=== PATIENT | male | born 1965 | race Two or more races ===

== ENCOUNTER → 2020-07-23 | Outpatient (CLI) | payer BC ==
[2020-07-23 11:23] LABS: Basophils # (A) 0.1 k/uL (0-0.2); Basophils % (A) 1 %; Eosinophils # (A) 0.5 k/uL (0-0.7); Eosinophils % (A) 7 %; HCT 48.4 % (39.0-53.0); HGB 15.9 gm/dL (13.0-17.5); Lymphocytes # (A) 0.9 k/uL (1.0-4.8); Lymphocytes % (A) 12 %; MCH 26.9 pg (25.0-35.0); MCHC 32.9 g/dL (31.0-37.0); MCV 81.9 fL (80.0-100.0); Mean Platelet Volume 8.3; Monocytes # (A) 0.5 k/uL (0-1.0); Monocytes % (A) 7 %; Neutrophils # (A) 5.1 k/uL (1.3-7.7); Neutrophils % (A) 70 %; Platelet Count 241 k/uL (150-450); RBC 5.91 m/uL (4.30-5.90); RDW 13.5 % (11.5-15.5); WBC 7.3 k/uL (3.8-10.6)
[2020-07-23 11:59] LABS: Total Eosinophil Count 511 #EOS/uL (150-300)
[2020-07-23 12:23] LABS: Erythrocyte Sedimentation Rate 7 mm/hr (0-15)
[2020-07-23 17:57] LABS: African American GFR (CKD) 96.4 (60.0-200.0); Albumin 4.5 g/dL (3.80-4.90); Albumin/Globulin Ratio 1.67 (1.60-3.17); Anion Gap 11.3 mmol/L (4.00-12.00); Calcium 10.2 mg/dL (8.7-10.3); Carbon Dioxide 25.7 mmol/L (21.6-31.8); Globulin 2.7 g/dL (1.6-3.3); Non-African American GFR(CKD) 83.2 (60.0-200.0); Potassium 4.5 mmol/L (3.5-5.5); Total Bilirubin 0.8 mg/dL (0.3-1.2); Total Protein 7.2 g/dL (6.2-8.2)
[2020-07-23 18:22] LABS: Cat Epith & Dander IgE <0.10 kU/L; Cladosporian herbarum IgE <0.10 kU/L; Cockroach IgE <0.10 kU/L; Dermato. farinae IgE 0.11 kU/L; Dog Dander IgE <0.10 kU/L
[2020-07-23 18:23] LABS: Aspergillus fumagatus IgE <0.10 kU/L
[2020-07-23 19:05] LABS: Alternaria alternata IgE <0.10 kU/L; Red Top (Bentgrass) IgE <0.10 kU/L
[2020-07-23 19:07] LABS: Ragweed,Common IgE <0.10 kU/L
[2020-07-23 19:41] LABS: Elm IgE <0.10 kU/L; Maple (Box Elder) IgE <0.10 kU/L
[2020-07-23 19:42] LABS: Birch IgE <0.10 kU/L; Oak IgE <0.10 kU/L
== END | disposition home or self-care (01) ==
LOC: LABWHC1 10:37
PROVIDERS: ATTEND Internal Medicine Critical Care Medicine
DX: J45.909 Unspecified asthma, uncomplicated (principal)
CPT/HCPCS: 36415; 80053; 82785; 85008; 85025; 85652; 86003

== ENCOUNTER → 2021-07-06 | Outpatient (CLI) | payer BC ==
[2021-07-06 13:10] LABS: Basophils % (A) 1 %; Eosinophils # (A) 0.1 k/uL (0-0.7); Eosinophils % (A) 2 %; HCT 47.8 % (39.0-53.0); HGB 15.9 gm/dL (13.0-17.5); Lymphocytes # (A) 0.8 k/uL (1.0-4.8); Lymphocytes % (A) 11 %; MCH 27.5 pg (25.0-35.0); MCHC 33.3 g/dL (31.0-37.0); MCV 82.7 fL (80.0-100.0); Mean Platelet Volume 7.8; Monocytes # (A) 0.4 k/uL (0-1.0); Monocytes % (A) 7 %; Neutrophils # (A) 5.3 k/uL (1.3-7.7); Neutrophils % (A) 77 %; Platelet Count 197 k/uL (150-450); RBC 5.78 m/uL (4.30-5.90); RDW 13.7 % (11.5-15.5); WBC 6.8 k/uL (3.8-10.6)
[2021-07-06 13:47] LABS: Total Eosinophil Count 143 #EOS/uL (150-300)
[2021-07-06 14:53] LABS: Erythrocyte Sedimentation Rate 10 mm/hr (0-15)
[2021-07-06 20:16] LABS: African American GFR (CKD) 114.2 (60.0-200.0); Albumin 4.2 g/dL (3.8-4.9); Albumin/Globulin Ratio 1.49 (1.60-3.17); Anion Gap 15.2 mmol/L (10.00-18.00); BUN/Creat Ratio 26.69 Ratio (12.00-20.00); Blood Urea Nitrogen 21.3 mg/dL (9.0-27.0); Calcium 8.9 mg/dL (8.7-10.3); Carbon Dioxide 19.2 mmol/L (20.0-27.5); Globulin 2.8 g/dL (1.6-3.3); Non-African American GFR(CKD) 98.6 (60.0-200.0); Total Bilirubin 0.3 mg/dL (0.30-1.20)
[2021-07-06 22:26] LABS: Aspergillus fumagatus IgE <0.10 kU/L; Ragweed,Common IgE <0.10 kU/L
[2021-07-06 22:41] LABS: Birch IgE <0.10 kU/L; Cat Epith & Dander IgE <0.10 kU/L; Cockroach IgE <0.10 kU/L; Dermato. farinae IgE <0.10 kU/L; Dog Dander IgE <0.10 kU/L; Elm IgE <0.10 kU/L; Maple (Box Elder) IgE <0.10 kU/L; Oak IgE <0.10 kU/L; Red Top (Bentgrass) IgE <0.10 kU/L
== END | disposition home or self-care (01) ==
LOC: LABWHC1 12:33
PROVIDERS: ATTEND Internal Medicine Critical Care Medicine
DX: J45.998 Other asthma (principal)
CPT/HCPCS: 36415; 80053; 82785; 85008; 85025; 85652; 86003

== ENCOUNTER → 2022-10-11 | Outpatient (CLI) | payer BC ==
[2022-10-11 21:55] LABS: Basophils # (A) 0.01 X 10*3/uL (0.00-0.10); Basophils % (A) 0.2 %; Eosinophils # (A) 0 X 10*3/uL (0.04-0.35); Eosinophils % (A) 0 %; HCT 49.2 % (39.6-50.0); HGB 15.6 g/dL (13.0-17.0); Immature Grans, Automated 0.9 %; Lymphocytes # (A) 0.91 X 10*3/uL (0.90-5.00); Lymphocytes % (A) 15.5 %; MCH 26.4 pg (27.0-32.0); MCHC 31.7 g/dL (32.0-37.0); MCV 83.2 fL (80.0-97.0); Mean Platelet Volume 10.6 fL (9.5-12.2); Monocytes # (A) 0.79 X 10*3/uL (0.20-1.00); Monocytes % (A) 13.5 %; NRBC Per 100 WBC 0 /100 WBCS (0.0-0.0); Neutrophils # (A) 4.11 X 10*3/uL (1.80-7.70); Neutrophils % (A) 69.9 %; Platelet Count 254 X 10*3/uL (140-440); RBC 5.91 X 10*6/uL (4.40-5.60); RDW 13.8 % (11.5-14.5); WBC 5.87 X 10*3/uL (4.50-10.00)
[2022-10-11 23:19] LABS: Erythrocyte Sedimentation Rate 14 mm/Hr (0-20)
[2022-10-12 00:23] LABS: African American GFR (CKD) 101.9 (60.0-200.0); Albumin 4.3 g/dL (3.8-4.9); Albumin/Globulin Ratio 1.66 (1.60-3.17); Anion Gap 11.1 mmol/L (10.00-18.00); BUN/Creat Ratio 22.46 Ratio (12.00-20.00); Blood Urea Nitrogen 21.2 mg/dL (9.0-27.0); Calcium 10.1 mg/dL (8.7-10.3); Carbon Dioxide 25.4 mmol/L (20.0-27.5); Globulin 2.6 g/dL (1.6-3.3); Non-African American GFR(CKD) 87.9 (60.0-200.0); Potassium 4.6 mmol/L (3.5-5.5); Total Bilirubin 0.3 mg/dL (0.30-1.20)
[2022-10-12 00:24] LABS: T4, Free (Free Thyroxine) 1.43 ng/dL (0.800-1.800)
[2022-10-12 13:04] LABS: Aldolase 3.3 U/L (1.2-7.6)
[2022-10-12 15:50] LABS: C Reactive Protein 0.9 mg/dL (0.00-0.80)
== END | disposition home or self-care (01) ==
LOC: LABWHC1 13:21
PROVIDERS: ATTEND Internal Medicine Critical Care Medicine
DX: J45.50 Severe persistent asthma, uncomplicated (principal)
CPT/HCPCS: 36415; 80053; 82085; 82164; 82550; 83615; 84439; 84443; 85025; 85652; 86140

== ENCOUNTER → 2024-11-08 | Outpatient (CLI) | payer BC ==
[2024-11-08 15:34] LABS: ALT 41 U/L (10-49); AST 33 U/L (14-35); Albumin 4.3 g/dL (3.8-4.9); Albumin/Globulin Ratio 1.87 Ratio (1.60-3.17); Alkaline Phosphatase 158 U/L (41-126); BUN/Creat Ratio 24.73 Ratio (12.00-20.00); Blood Urea Nitrogen 27.2 mg/dL (9.0-27.0); Calcium 9.6 mg/dL (8.7-10.3); Carbon Dioxide 24.9 mmol/L (21.6-31.8); Chloride 106 mmol/L (96-109); Chol/HDL Ratio 2.16 Ratio; Globulin 2.3 g/dL (1.6-3.3); Glucose 87 mg/dL (70-110); LDL Cholesterol,Calculated 49.9 mg/dL (0.0-131.0); Potassium 4.8 mmol/L (3.5-5.5); Sodium 141 mmol/L (135-145); T4, Free (Free Thyroxine) 1.39 ng/dL (0.80-1.80); Total Bilirubin 0.6 mg/dL (0.3-1.2); Total Protein 6.6 g/dL (6.2-8.2); VLDL Calculation 16.84 mg/dL (5.00-40.00)
[2024-11-08 18:58] LABS: Basophils % (A) 1.4 %; Eosinophils # (A) 0.66 X 10*3/uL (0.04-0.35); Eosinophils % (A) 9.1 %; HCT 54.7 % (39.6-50.0); HGB 17.5 g/dL (13.0-17.0); Lymphocytes # (A) 1.05 X 10*3/uL (0.90-5.00); Lymphocytes % (A) 14.5 %; MCH 26.9 pg (27.0-32.0); MCV 84.2 FL (80.0-97.0); Mean Platelet Volume 10.8 FL (9.5-12.2); Monocytes # (A) 0.87 X 10*3/uL (0.20-1.00); NRBC Per 100 WBC 0 X 10*3/uL (0.00-0.01); Neutrophils % (A) 62.3 %; Platelet Count 206 X 10*3/uL (140-440); RDW 14.1 % (11.5-14.5); WBC 7.23 X 10*3/uL (4.50-10.00)
[2024-11-08 19:10] LABS: Erythrocyte Sedimentation Rate 12 mm/Hr (0-20)
== END | disposition home or self-care (01) ==
LOC: LABWHC1 12:28
PROVIDERS: ATTEND Internal Medicine Critical Care Medicine
DX: Z00.00 Encounter for general adult medical examination without abnormal findings (principal); I21.3 ST elevation (STEMI) myocardial infarction of unspecified site; I10 Essential (primary) hypertension; E78.5 Hyperlipidemia, unspecified; J45.50 Severe persistent asthma, uncomplicated
CPT/HCPCS: 36415; 80053; 80061; 82164; 82652; 84439; 84443; 85025; 85652

== ENCOUNTER → 2024-11-08 | Outpatient (CLI) | payer BC ==
--- NOTE | 2024-11-14 13:48 | P.PCN ---
Date of Procedure: 11/11/24 Operative Findings: Home sleep study report Date of service is 11/09/2024 History 59-year-old male patient with history of snoring and chronic fatigue and limited sleepiness. Suspected obstructive sleep apnea. No recent weight gain. Known to have cardiomyopathy, previous AR post AICD placement. Also noted to have chronic bronchial asthma. The patient carries an [place] score of 7. Physical findings Body mass index is 25.2. Technical description The [employer] system was used to complete his home sleep study. The total sleep recording duration was 7 hours and 27 minutes. The study started at 12:33 AM and ended at 8 AM. There was a total of 7 hours and 15 minutes of flow monitoring and 7 hours and 17 minutes of oxygen saturation monitoring. Results The respiratory analysis showed a total of 11 obstructive apneas and 53 obstructive hypopneas. The resulting AHI was 8.8 consistent with mild obstructive sleep apnea. AHI in the supine body position was 11.2 Oxygenation analysis The patient had a baseline pulse ox of 93% on room air oxygen. The average pulse ox during sleep was 92% with the lowest pulse ox of 88% and the patient managed to maintain a pulse ox of above 89% throughout the sleep study. As such, there was no significant nocturnal oxygen desaturations. Cardiac summary Average heart rate was 61 with a minimum heart of 57 and a maximum heart of 80 Assessment Mild obstructive sleep apnea with an AHI of 8.8. No associated nocturnal oxygen desaturation. Chronic fatigue Minimal sleepiness with an [place] score of 7 Chronic bronchial asthma, eosinophilic Known history of environmental allergies Chronic granulomatous disease of the lung with history of bilateral pulmonary nodules Cardiomyopathy with impaired LV function the patient has an AICD in place Plan This is a case of mild obstructive sleep apnea. No significant desaturations. No immediate need for CPAP therapy. Encourage weight loss. Sleep on his side and maintain good sleep hygiene measures. CPAP therapy benefit is limited at this point. Will discuss the findings with the patient. Will make further recommendations accordingly.
== END ==
LOC: 3 N SLEEP 11:58
PROVIDERS: ATTEND Internal Medicine Critical Care Medicine
DX: G47.33 Obstructive sleep apnea (adult) (pediatric) (principal); J45.909 Unspecified asthma, uncomplicated; D72.10 Eosinophilia, unspecified; I42.9 Cardiomyopathy, unspecified; D71 Functional disorders of polymorphonuclear neutrophils; R53.82 Chronic fatigue, unspecified; Z87.09 Personal history of other diseases of the respiratory system
CPT/HCPCS: 99212